=== PATIENT | male | born 1960 | race American Indian/Alaskan Native ===

== ENCOUNTER 2018-07-26 07:47 | Outpatient (CLI) | payer BC ==
--- NOTE | 2018-07-26 13:51 | Nuclear Medicine Report ---
BONE SCAN: History: Malignant neoplasm of prostate. Comparison: CT abdomen pelvis without contrast performed the same day. After injection of isotope, gamma camera imaging of the bony system was done. There is a normal uptake of isotope throughout the bony structures without areas of significantly increased or decreased uptake. Normal uptake in the urinary system is seen. IMPRESSION: Negative bone scan. No evidence for metastatic disease to the skeletal system.
--- NOTE | 2018-07-26 14:32 | Cat Scan Report ---
FINAL REPORT EXAM: CT ABDOMEN PELVIS WO CON HISTORY: MALIGNANT NEOPLASM OF PROSTATE COMPARISON: None. TECHNIQUE: Multiple contiguous axial images were obtained from the lung bases to the pubic symphysis without administration of IV contrast. Oral contrast was administered. Reformatted sagittal and coronal images were available for review. FINDINGS: Lung bases: Normal. Visualized heart and mediastinum: Normal heart size. Scattered coronary artery calcifications. Liver: Normal noncontrast appearance. Spleen: Scattered calcified granulomas. Pancreas: Normal noncontrast appearance. Gallbladder and Biliary Tree: No calcified gallstones. No biliary ductal dilatation. Adrenal glands: Normal. Kidneys: Normal. No renal or ureteral calcifications. No hydronephrosis. Bladder: Normal. Pelvic organs: The prostate gland demonstrates internal calcifications. There is mild mass effect at the bladder base. Bowel: No focal wall thickening. No evidence of obstruction. Scattered diverticula of the sigmoid and right colon without evidence diverticulitis. Normal appendix without surrounding inflammatory change. There is a 2 x 1.2 centimeter filling defect within distal small bowel in the right lower quadrant (series 2, image 111), that may represent a polyp versus mass. Peritoneum: No significant mesenteric adenopathy. No free air or free fluid. Vasculature: Abdominal aorta is normal in caliber without evidence of aneurysm. Scattered atherosclerotic calcifications. Normal noncontrast appearance of the portal venous system and the inferior vena cava. Bones and soft tissues: No suspicious osseous lesions. No acute fracture or dislocation. Soft tissues are normal. IMPRESSION: No acute intra-abdominal pathology. Mild prominence of the prostate gland with mass effect at the bladder base. Some internal calcifications within the prostate gland. 2 x 1.2 centimeter oblong filling defect within the distal small bowel in the right lower quadrant that may represent a polyp versus a mass. Scattered diverticula of the sigmoid colon and cecum without evidence diverticulitis.
== END 2018-07-26 07:48 | disposition home or self-care (01) ==
LOC: NM 07:47
PROVIDERS: ATTEND Urology
DX: N42.89 Other specified disorders of prostate (principal); K57.30 Diverticulosis of large intestine without perforation or abscess without bleeding
CPT/HCPCS: 74176; 78306; A9503